=== PATIENT | male | born 1950 | race Caucasian/White ===

== ENCOUNTER 2017-11-04 13:54 | Emergency (ER) | payer MEDICARE, MEDICAID, SELFPAY ==
[2017-11-04 14:05] VITALS: BP 107/86; PULSE 112; RESP 20; TEMP 38.9; O2SAT 99; BMI 22.5
--- NOTE | 2017-11-04 14:30 | HMH.EDUTC ---
[facility] [place] Clinical Impression: Erythrodermic psoriasis, Fever Disposition: Xfer Short-Term Hosp Condition on Discharge: Good Additional Instructions: This is a rare but very dangerous form of psoriasis. Its important to know the symptoms. If you think you have erythrodermic psoriasis, see your doctor right away. Symptoms Fiery red skin from head to toe is the main symptom. Your skin is also covered in scales and peels off in large pieces. It can be very painful and itchy. You might see tiny blisters called pustules that are filled with pus. Symptoms can develop over time, but they can come on suddenly too. You also may have: Chills or fever Joint pain Rapid heartbeat Swollen ankles Why Its Dangerous Your skin is important to your overall health. It helps control your body temperature, keeps germs and toxins out, and holds moisture in. Erythrodermic psoriasis throws all this off, and the results can be life threatening. They include a dangerously low body temperature (hypothermia), the loss of much-needed proteins and fluids, and severe illnesses like sepsis or pneumonia. If you lose too much fluid, your heart wont have enough blood to pump. That can lead to shock, kidney failure, or heart failure. Causes Psoriasis is an autoimmune disease. Instead of fighting infection, your bodys natural defense system attacks healthy tissue. Youre more likely to get erythrodermic psoriasis if you already have plaque psoriasis, especially if its unstable. That means the raised, scaly patches dont have well-defined edges. But it also affects people whove never had the disease. It can appear if you suddenly stop taking your oral psoriasis medication. Other triggers include: Alcoholism Drug reaction HIV Infection Oral steroid medicine Severe sunburn Stress Treatment If you have symptoms of erythrodermic psoriasis, dont wait to get help. Go to the hospital immediately. Doctors will try to stop the flare-up as quickly as possible and protect you from complications. Treatment depends on how bad your symptoms are and whether you have other health problems. You may be prescribed a combination of one or more drugs: Cyclosporine (Sandimmune), infliximab (Remicade), or infliximab-abda (Renflexis) and Infliximab-dyyb (Inflectra), biosimilars to Remicade, may be the first line of defense. They work by stopping the attack of qyh-uh-sfkhvoy immune cells. Your doctor may also prescribe acitretin (Soriatane) or methotrexate to control cell growth. You may also take an immune-suppressing drug, such as adalimumab (Humira), adalimumab-atto (Amjevita), a biosimilar to Humira, etanercept (Enbrel), etanercept-szzs (Erelzi), ixekizumab (Talz), secukinumab (Cosentyx), or ustekinumab (Stelara). These medicines are powerful and can have many side effects. Talk to your doctor to find out if theyre right for you. Make sure hes aware of any other medical conditions you have or any other medications you take. To soothe your skin from the outside, you may use a steroid cream or ointment moisturizers, wet wraps, or oatmeal baths. You may need antibiotics to help prevent infection and medication for pain, itching, or anxiety. Referrals: Bari Kapoor MD [Primary Care Provider] - (after discharge from ) Time of Disposition: 17:45 Medical Decision Making Vital Signs: 11/04/17 14:05 11/04/17 16:39 Temperature 102.1 F H 98.2 F Temperature Source Oral Oral Pulse Rate [Right] 112 H Respiratory Rate 20 Blood Pressure [Right Arm] 107/86 Blood Pressure Mean [Right Arm] 93 Blood Pressure Source [Right Arm] Automatic Cuff Blood Pressure Position [Right Arm] Sitting 02 Sat by Pulse Oximetry 99 Oxygen Delivery Method Room Air - Lab Data Lab results reviewed: Yes: I reviewed the patient's lab results. Lab Results 11/04/17 14:36: Influenza Type A Ag Negative, Influenza Type B Ag Negative 11/04/17 15:31: Urine Color Yellow, Urine Appearance Clear, U
--- NOTE | 2017-11-04 14:36 | ED_ITS ---
[facility] – [place] Disposition Clinical Impression: Erythrodermic psoriasis, Fever Disposition: Xfer Short-Term Hosp Condition on Discharge: Good Additional Instructions: This is a rare but very dangerous form of psoriasis. It?s important to know the symptoms. If you think you have erythrodermic psoriasis, see your doctor right away. Symptoms Fiery red skin from head to toe is the main symptom. Your skin is also covered in scales and peels off in large pieces. It can be very painful and itchy. You might see tiny blisters called pustules that are filled with pus. Symptoms can develop over time, but they can come on suddenly too. You also may have: * Chills or fever * Joint pain * Rapid heartbeat * Swollen ankles Why It?s Dangerous Your skin is important to your overall health. It helps control your body temperature, keeps germs and toxins out, and holds moisture in. Erythrodermic psoriasis throws all this off, and the results can be life threatening. They include a dangerously low body temperature (hypothermia), the loss of much- needed proteins and fluids, and severe illnesses like sepsis or pneumonia. If you lose too much fluid, your heart won?t have enough blood to pump. That can lead to shock, kidney failure, or heart failure. Causes Psoriasis is an autoimmune disease. Instead of fighting infection, your body?s natural defense system attacks healthy tissue. You?re more likely to get erythrodermic psoriasis if you already have plaque psoriasis, especially if it? s unstable. That means the raised, scaly patches don?t have well-defined edges. But it also affects people who?ve never had the disease. It can appear if you suddenly stop taking your oral psoriasis medication. Other triggers include: * Alcoholism * Drug reaction * HIV * Infection * Oral steroid medicine * Severe sunburn * Stress Treatment If you have symptoms of erythrodermic psoriasis, don?t wait to get help. Go to the hospital immediately. Doctors will try to stop the flare-up as quickly as possible and protect you from complications. Treatment depends on how bad your symptoms are and whether you have other health problems. You may be prescribed a combination of one or more drugs: * Cyclosporine (Sandimmune), infliximab (Remicade), or infliximab-abda ( Renflexis) and Infliximab-dyyb (Inflectra), biosimilars to Remicade, may be the first line of defense. They work by stopping the attack of tnn-ah-etvmpef immune cells. * Your doctor may also prescribe acitretin (Soriatane) or methotrexate to control cell growth. * You may also take an immune-suppressing drug, such as adalimumab (Humira), adalimumab-atto (Amjevita), a biosimilar to Humira, etanercept (Enbrel), etanercept-szzs (Erelzi), ixekizumab (Talz), secukinumab (Cosentyx), or ustekinumab (Stelara). * These medicines are powerful and can have many side effects. Talk to your doctor to find out if they?re right for you. Make sure he?s aware of any other medical conditions you have or any other medications you take. To soothe your skin from the outside, you may use a steroid cream or ointment moisturizers, wet wraps, or oatmeal baths. You may need antibiotics to help prevent infection and medication for pain, itching, or anxiety. Referrals: Bari Kapoor MD [Primary Care Provider] - (after discharge from ) Time of Disposition: 17:45 Medical Decision Making Vital Signs: 11/04/17 14:05 11/04/17 16:39 Temperature 102.1 F H 98.2 F Temperature Source Oral Oral Pulse Rate [Right] 112 H Respiratory Rate 20 Blood Pressure [Right Arm] 107/86 Blood Pressure Me
[2017-11-04 14:51] LABS: UTC Influenza A Antigen Negative (Negative); UTC Influenza B Antigen Negative (Negative)
--- NOTE | 2017-11-04 15:32 | XR_ITS ---
XR chest 2V HISTORY: ITS.REASON: mild cough, fever 102, acute flare psoriasis ORDERING PHYSICIAN: Karuna Perez PATIENT AGE: 67 years COMPARISON: 05-09 FINDINGS: The cardiomediastinal silhouette and pulmonary vascularity are within normal limits. The lungs are clear without infiltrates, suspicious nodules, or pleural effusions. Hyperinflation with attenuation of the peripheral pulmonary vessels consistent with obstructive chronic bronchitis. No lobar consolidation or collapse. There is no fracture of the right fifth rib. No acute bony abnormalities. IMPRESSION: COPD, and no acute finding
[2017-11-04 15:51] LABS: Basophils # 0.1 K/mm3 (0-0.2); Basophils % 0.6 % (0.1-2.0); Eosinophils # 0.7 K/mm3 (0.0-0.4); Eosinophils % 7.5 % (0.1-12.0); Hematocrit 39.4 % (42.0-52.0); Hemoglobin 13.2 g/dL (14.1-18.0); Lymphocytes # 1.8 K/mm3 (0.7-4.5); Lymphocytes % 19.7 K/mm3 (10-50); Mean Corpuscular HGB Conc 33.4 g/dL (31.8-35.4); Mean Corpuscular Hemoglobin 29.9 pg (27.0-31.2); Mean Corpuscular Volume 89.5 fl (80-94); Mean Platelet Volume 8.7 fl (7.4-10.4); Monocytes # 0.6 K/mm3 (0.1-1.0); Monocytes % 6.4 % (1.7-9.3); Neutrophils # 5.9 K/mm3 (1.8-7.8); Neutrophils % 65.7 % (37.0-80.0); Platelet Count 229 K/mm3 (142-424)
[2017-11-04 15:58] LABS: Apearance,Urine Clear (Clear); Color,Urine Yellow (Yellow); PH,Urine 7.5 (5.0-8.5); Specific Gravity, Urine 1.015 (1.005-1.030)
[2017-11-04 15:59] LABS: Bilirubin,Urine Negative (Negative); Blood, Urine Trace (Negative); Ketones,Urine Negative (Negative); Protein,Urine Negative (Negative); UTC Leukocyte Esterase,Urine Negative (Negative); UTC Nitrate,Urine Negative (Negative); Urobilinogen,Urine 0.2 EU/dl (0.2)
[2017-11-04 16:00] LABS: UTC Strep Screen (Rapid) Negative (Negative)
[2017-11-04 16:00] LABS: Alanine Aminotransferase 14 U/L (12-78); Albumin/Globulin Ratio 0.8 (1.1-1.8); Alkaline Phosphatase 97 U/L (46-116); Anion Gap 10.2 mEq/L (5-15); Aspartate Amino Transferase 14 U/L (15-37); Bilirubin,Total 0.5 mg/dL (0.2-1.0); Blood Urea Nitrogen 18 mg/dL (7-18); Calcium 8.1 mg/dL (8.5-10.1); Carbon Dioxide 27 mmol/L (21.0-32.0); Chloride 97 mmol/L (98-107); Creatinine Clearance Estimated 87 mL/min (0-300); Creatinine,Serum 0.96 mg/dL (0.70-1.30); Estimated Glomerular Filt Rate 79 ml/min (>60); GFR (African American) 95 ML/MIN (>60); Globulin 3.9 gm/dl (1.3-3.2); Glucose 297 mg/dL (74-106); Potassium 4.2 mmoL/L (3.5-5.1); Sodium 130 mmol/L (136-145); Total Protein,Serum 6.9 gm/dL (6.4-8.2)
[2017-11-04 16:39] VITALS: TEMP 36.8
== END 2017-11-04 18:18 | disposition short-term general hospital (02) ==
PROVIDERS: Emergency Provider Nurse Practitioner Family; Family Provider Family Medicine; PCP Family Medicine
DX: L40.8 Other psoriasis (principal); I10 Essential (primary) hypertension; E11.9 Type 2 diabetes mellitus without complications; E78.5 Hyperlipidemia, unspecified; F17.210 Nicotine dependence, cigarettes, uncomplicated
CPT/HCPCS: 36415; 71046; 80053; 81003; 85025; 87804; 87880; 99203; 99282

== ENCOUNTER → 2018-09-19 09:21 | Outpatient (CLI) | payer MEDICARE, SELFPAY ==
--- NOTE | 2018-09-19 09:27 | XR_ITS ---
XR knee LT 3V HISTORY: Pain with popping and cracking ITS.REASON: PAIN IN LEFT KNEE ORDERING PHYSICIAN: Laurence Garvin PATIENT AGE: 68 years COMPARISON: None FINDINGS: There is very slight decrease in the joint space medially and at the patellofemoral joint with minimal osteophytes at the patellofemoral joint and along the proximal tibia medially consistent with mild osteoarthritis. No fracture or dislocation. No lytic or blastic change. Vascular calcification noted IMPRESSION: Mild osteoarthritis
== END ==
PROVIDERS: PCP Nurse Practitioner; Visit Provider Nurse Practitioner
DX: M25.562 Pain in left knee (principal)
CPT/HCPCS: 73562

== ENCOUNTER → 2018-11-08 10:27 | Outpatient (CLI) | payer MEDICARE, MEDICAID, SELFPAY ==
--- NOTE | 2018-11-08 10:29 | XR_ITS ---
XR knee LT 4V HISTORY: ITS.REASON: Lt knee pain ORDERING PHYSICIAN: Laurence Garvin PATIENT AGE: 68 years FINDINGS: No fracture or dislocation. No lytic or blastic change. Normal mineralization. There is slight decrease in the joint space medially. Otherwise negative. IMPRESSION: Minimal osteoarthritic change medial compartment not significant change from 09/19/2019
--- NOTE | 2018-11-08 10:38 | CA_ITS ---
PROCEDURE: 2-D M-mode and color Doppler study INDICATIONS FOR THE TEST: Chest pain COPD Heart Murmur Tobacco Smoking+ Palpitations Fatigue Syncope Edema Hypertension+Diabetes Mellitus+ Rheumatic Fever SOB LACEY Obesity Hyperlipidemia Family History HD Additional History TDE LUNG INTERFERENCE PATIENT INFORMATION HEIGHT: 76 WEIGHT:200 GENDER: Male B/P:132/78 2-D/M-MODE INTERPRETATION: 2-D MEASUREMENTS OBSERVED VALUES IN CMS Right Ventricular Dimension (RVDd) 2.9 Interventricular Septum (Thickness)(IVsd) 1.5 Left Ventricular Internal Dimensions(LVIDd) 5.0 Left Ventricular Posterior Wall (Thickness)(LVPWd) 1.1 Aortic Root 3.4 Aortic Cusp Separation 1.9 Left Atrial Dimensions (LAD) 3.6 2D 1. Left atrium is mildly enlarged, left ventricle is normal size, mild concentric left ventricular hypertrophy, visually estimated ejection fraction 55% with no regional wall motion abnormality. 2. The right atrium and right ventricle are moderately enlarged, contractility of the right ventricle is mildly reduced. 3. The aortic valve is minimally thickened and fibrosed. 4. The mitral and tricuspid valve leaflets are minimally thickened. 5. The pulmonic valve is poorly visualized. 6. No significant pericardial effusion noted. DOPPLER INTERROGATION: Doppler interrogation of the aortic, mitral and tricuspid valvular presence of mild mitral and tricuspid regurgitation, tricuspid regurgitation jet velocity is inadequate for calculation of the right ventricular systolic pressure, grade 1 diastolic dysfunction seen with tissue Doppler evidence of raised left atrial pressure. CONCLUSION: 1. Mildly enlarged left atrium, normal left ventricular size, mild concentric left ventricular hypertrophy, visually estimated ejection fraction 55% with no regional wall motion abnormality, grade 1 diastolic dysfunction seen with tissue Doppler evidence of raised left atrial pressure. 2. Moderately enlarged right ventricle with mild reduced contractility. 3. Mild mitral and tricuspid regurgitation. 4. No significant pericardial effusion noted.
--- NOTE | 2018-11-08 11:21 | CT_ITS ---
CT lung screening EXAM: CT LUNG LOW DOSE WO CONTRAST HISTORY: 45 pack-year smoking history asymptomatic for lung cancer ITS.REASON: H/O NICOTINE DEPENDENCE ORDERING PHYSICIAN: Laurence Garvin PATIENT AGE: 68 years COMPARISON: 07/10/2015 TECHNIQUE: The exam was performed on a GE Light Speed [address] scanner using 2.90 mGy CTDI. A low dose helical CT CHEST was performed on a multi-detector scanner. All CT scans at the facility use one or more dose reduction, viz: automated exposure control, ma/kV adjustment per patient size (including targeted exams where dose is matched to indication, i.e. head), or iterative reconstruction technique. The LDCT was performed in a facility that meets the criteria for the screening program. Data regarding this exam was submitted to ACR which is an approved registry. The order for this exam indicates that it came as a result of a lung cancer screening counseling shard decision-making visit that included all the elements required of such a visit including smoking cessation. The radiologist interpreting this exam meets the CMS criteria for the LDCT lung cancer screening program. The exam is reported using the Lung-RADS classification scale and reported to the ACR registry. NOTE: This study was performed for the specific purposes of lung cancer screening and is not an alternative to diagnostic chest CT. RADIATION DOSE: CTDI vol(CT dose Index-volume) = 2.90mG DLP (Dose Length Product) = 115.29 mGcm FINDINGS: There is centrilobular emphysema with hyperinflation and attenuation of the peripheral pulmonary vessels consistent with obstructive chronic bronchitis. There are scattered subpleural nodular opacities and scattered areas of scarring. There is a 4 mm noncalcified nodule in the right lung base posterior laterally unchanged. There is a groundglass opacity in the right lung base posteriorly. This measures approximately 10 x 8 mm. This appears slightly more prominent than when compared to the previous study however part of that could be due to the slice orientation. Subpleural 5 mm nodule in the left lung base anteriorly unchanged. An additional 4 mm nodular opacity is present in the left lower lobe laterally unchanged. 6 mm stable nodules present in the left lower lobe posterior laterally. No new nodules are evident. Coronary artery calcifications are present. IMPRESSION: 1. Lung RADS Category: 3, probably benign. Groundglass opacity right lower lobe is very slightly more prominent. Recommend 6 month follow-up. Other smaller pulmonary nodules are noted and are unchanged. 2. Other findings: COPD, centrilobular emphysema, coronary artery disease RECOMMENDATIONS: 6 month LDCT follow-up
--- NOTE | 2018-11-08 12:20 | NM_ITS ---
History and Indications: Hypertension, diabetes, hyperlipidemia, tobacco use, family history, shortness of breath and fatigue Procedure: Patient received a 0.4 mg of intravenous Lexiscan, resting heart rate was 80 bpm, resting blood pressure 114/67, with Lexiscan maximum heart rate achieved was 97 bpm which is less than 85% of the maximum predicted heart rate and a blood pressure was 110/57. With Lexiscan patient complained of shortness of breath. Electrocardiogram: Resting electrocardiogram showed sinus rhythm, with Lexiscan there is occasional premature ventricular complex seen less than 1.[address] segment depression noted from the baseline EKG. The EKG portion of the Lexiscan Myoview is nondiagnostic. Cardiac stress and resting SPECT images: Cardiac stress and rest SPECT images were obtained using technetium 99 Myoview 30.7 mCi at stress and 10.4 mCi at rest. Gated SPECT further analysis of segmental wall motion and calculation of the ejection fraction also done. Cardiac stress and rest SPECT images show a mild fixed defect in the inferior wall with normal contractility in the gated SPECT is likely secondary to soft tissue attenuation, no reversible ischemia seen, computer derived ejection fraction is 65% with no regional wall motion abnormality, right ventricle is normal size and contractility. Conclusion: 1. The EKG portion of the Lexiscan Myoview is nondiagnostic. 2. No scintigraphic evidence of reversible ischemia seen, computer derived ejection fraction is 65% with no regional wall motion abnormality, right ventricle is normal size and contractility. 3. Normal Lexiscan Myoview study.
[2018-11-08 16:15] VITALS: PULSE 92; PULSE 96
== END ==
PROVIDERS: PCP Nurse Practitioner; Visit Provider Nurse Practitioner
DX: R06.02 Shortness of breath (principal); Z12.2 Encounter for screening for malignant neoplasm of respiratory organs; Z87.891 Personal history of nicotine dependence; M17.12 Unilateral primary osteoarthritis, left knee
CPT/HCPCS: 73564; 78452; 93017; 93306; 94060; 94640; 94726; 94729; A9502; J2785

== ENCOUNTER → 2019-02-15 08:11 | Outpatient (CLI) | payer MEDICARE, MEDICAID, SELFPAY ==
--- NOTE | 2019-02-15 08:15 | XR_ITS ---
XR knee LT 4V HISTORY: Pain ITS.REASON: ap, lateral, dinesh gutierrez ORDERING PHYSICIAN: Griselda Jain MD PATIENT AGE: 69 years COMPARISON: 11/08/2018 FINDINGS: Minimal osteoarthritic changes are present at the medial compartment and patellofemoral joint not significant changed. No fracture or dislocation lytic or blastic changes. Vascular calcifications are present. IMPRESSION: Minimal osteoarthritis of the medial compartment and patellofemoral joint
--- NOTE | 2019-02-15 08:15 | XR_ITS ---
XR knee RT 4V HISTORY: Pain ITS.REASON: ap, lateral, dinesh gutierrez ORDERING PHYSICIAN: Griselda Jain MD PATIENT AGE: 69 years COMPARISON: None FINDINGS: No fracture or dislocation. No lytic or blastic change. Normal mineralization. Minimal osteoarthritic changes are present at the medial aspect of the patellofemoral joint was some minimal hypertrophic change and slight decrease in the joint space. IMPRESSION: Minimal osteoarthritis of the patellofemoral joint
== END ==
PROVIDERS: PCP Family Medicine; Visit Provider Orthopaedic Surgery
DX: M17.12 Unilateral primary osteoarthritis, left knee (principal); M17.11 Unilateral primary osteoarthritis, right knee
CPT/HCPCS: 73564

== ENCOUNTER → 2020-02-05 15:10 | Outpatient (CLI) | payer MEDICARE, MEDICAID, SELFPAY ==
--- NOTE | 2020-02-05 15:15 | XR_ITS ---
PROCEDURE: XR FOOT RT MIN 3V CLINICAL INDICATION: RT ANKLE PAIN Right foot and ankle pain COMPARISON: XR ANKLE RT MIN 3V from 02/05/2020 FINDINGS: No fracture or dislocation. No lytic or blastic change. There is normal mineralization. There are mild degenerative changes at the talonavicular joint with mild inferior translation of the navicular with pes planus. Small calcaneal spur is noted. Other findings:There is a prominent os trigonum IMPRESSION: Mild osteoarthritic change of the talonavicular joint with pes planus Dictated by: Holden Clayton MD 02/05/2020 15:43 Electronically signed by Holden Clayton MD in [place] 02/05/2020 15:43
--- NOTE | 2020-02-05 15:15 | XR_ITS ---
PROCEDURE: XR ANKLE RT MIN 3V CLINICAL INDICATION: RT ANKLE PAIN COMPARISON: No exams were available for comparison FINDINGS: Normal alignment. No fracture or dislocation. The ankle mortise is preserved. There is some minimal cortical regularity involving the talar dome medially nonspecific. Prominent os trigonum is present. IMPRESSION: Minimal nonspecific cortical irregularity of the talar dome medially otherwise negative Dictated by: Holden Clayton MD 02/05/2020 15:45 Electronically signed by Holden Clayton MD in [place] 02/05/2020 15:45
== END ==
PROVIDERS: PCP Nurse Practitioner; Visit Provider Nurse Practitioner
DX: M25.571 Pain in right ankle and joints of right foot (principal)
CPT/HCPCS: 73610; 73630

== ENCOUNTER → 2020-03-19 11:30 | Outpatient (CLI) | payer MEDICARE, MEDICAID, SELFPAY ==
--- NOTE | 2020-03-19 11:38 | US_ITS ---
PROCEDURE: US TESTICULAR CLINICAL INDICATION: TESTICULAR SWELLING COMPARISON: No exams were available for comparison FINDINGS: The right testicle is 5 x 2.5 x 3.3 cm and has an unremarkable appearance with blood flow noted. Left testicle is 4.4 x 2.5 x 3.2 cm and has an unremarkable appearance. Blood flow is present. No mass evident. There is a medium-sized left hydrocele with some debris and synechia within the hydrocele. IMPRESSION: 1. Left hydrocele with synechia 2. No testicular mass. There is bilateral testicular blood flow Dictated by: Holden Clayton MD 03/19/2020 12:37 Electronically signed by Holden Clayton MD in [place] 03/19/2020 12:37
--- NOTE | 2020-03-19 11:38 | XR_ITS ---
PROCEDURE: XR FOOT WT BEARING RT 3V CLINICAL INDICATION: flat feet, ankle pain COMPARISON: XR FOOT RT MIN 3V from 02/05/2020 XR ANKLE WT BEARING LT MIN 3V from 03/19/2020 XR ANKLE WT BEARING RT MIN 3V from 03/19/2020 FINDINGS: No fracture or dislocation. No lytic or blastic change. There is normal mineralization. The joint spaces are well-preserved. No significant degenerative/arthritic changes. No erosive changes evident.. The ankle mortise is preserved. The talar dome show some minimal subchondral lucency along the medial aspect of the talar dome Other findings:There is pes planus. There is a small calcaneal spur. There is an os trigonum as well as an additional calcific density just posterior to the os trigonum. IMPRESSION: Pes planus with calcaneal spur and prominent os trigonum Minimal subchondral lucency along the medial aspect of the talar dome which may be related to osteochondrosis. Dictated by: Holden Clayton MD 03/19/2020 14:54 Electronically signed by Holden Clayton MD in [place] 03/19/2020 14:54
--- NOTE | 2020-03-19 11:38 | XR_ITS ---
PROCEDURE: XR ANKLE WT BEARING LT MIN 3V CLINICAL INDICATION: flat feet, ankle pain COMPARISON: XR ANKLE WT BEARING RT MIN 3V from 03/19/2020 FINDINGS: No fracture, dislocation, lytic change, or blastic change evident. No significant degenerative change IMPRESSION: No acute findings. Dictated by: Holden Clayton MD 03/19/2020 14:48 Electronically signed by Holden Clayton MD in [place] 03/19/2020 14:48
--- NOTE | 2020-03-19 11:38 | XR_ITS ---
PROCEDURE: XR FOOT WT BEARING LT 3V CLINICAL INDICATION: flat feet, ankle pain COMPARISON: XR FOOT RT MIN 3V from 02/05/2020 FINDINGS: No fracture or dislocation. No lytic or blastic change. There is normal mineralization. The joint spaces are well-preserved. No significant degenerative/arthritic changes. No erosive changes evident. Other findings:There is mild pes planus. There is a small calcaneal spur IMPRESSION: Pes planus with small calcaneal spur.. Dictated by: Holden Clayton MD 03/19/2020 14:41 Electronically signed by Holden Clayton MD in [place] 03/19/2020 14:41
== END ==
PROVIDERS: PCP Family Medicine; Visit Provider Family Medicine
DX: M21.41 Flat foot [pes planus] (acquired), right foot (principal); M21.42 Flat foot [pes planus] (acquired), left foot; N50.89 Other specified disorders of the male genital organs; N50.812 Left testicular pain
CPT/HCPCS: 73610; 73630; 76870

== ENCOUNTER 2020-06-02 08:54 | Outpatient (RCR) | payer MEDICARE, MEDICAID, SELFPAY ==
--- NOTE | 2020-06-02 09:25 | HMH.PTOPEV ---
PT Outpatient Evaluation Rehab PT Outpatient Evaluation Start: 06/02/20 09:18 Freq: Status: Active Protocol: Document 06/02/20 09:18 OSEAS (Rec: 06/02/20 09:25 OSEAS [id number]) Electronically Signed By Rancho Suggs, PT 06/02/20 09:18 Outpatient Therapy Subjective History Subjective History Pt reports h/o chronic R ankle pain for 'my whole life pretty much', but 'it's better a little worse over the last 2 months'. Pt reports global R ankle pain, with intermittent 'sharp' pain, and reports h/o 'arthitis, and flat feet'. PMH:DM-W/NEUROPATHY BLE Chief Complaint Pain,Stiff,Paresthesia Symptom Type Ache,Sharp,Dull Symptoms Relieved By Nothing Symptoms Aggravated By Standing,Walking Prior Functional Limitations Housework,Standing,Walking Current Functional Limitations Housework,Standing,Walking Symptom Description Constant but Variable Level of pain today (0-10) 7 Pain scale - at its best (0-10) 7 Pain scale - at its worst (0-10) 9 Ankle/Foot Eval Gait Observation General Gait Pattern Observation Antalgic Gait Palpation Tenderness right Ankle/Foot Palpation Findings Tenderness Ankle/Foot Palpation Overall Comment [id number] JT LINE 2/4 ROM Ankle/Foot Dorsiflexion W/Knee Flexed +2 Passive Range Motion (degrees) Ankle/Foot Dorsiflexion w/Knee Extended 2-30 Passive Range (degrees) Ankle/Foot Plantar Flexion Passive Range 0-10 of Motion (degrees) Ankle/Foot Eversion Passive Range of 0-20 Motion (degrees) Ankle/Foot ROM Limitations Soft Tissue Tightness,Pain MMT Ankle Dorsiflexion Strength Grade 4 Good Ankle Plantarflexion Strength Grade 4- Good- Foot Eversion Strength Grade 4- Good- Foot Inversion Strength Grade 4- Good- Special Tests Ankle Anterior Drawer Test Negative Right Ankle Eversion Test Negative Right Ankle Inversion (supination) Test Negative Right Outpatient Therapy Assessment Impairments Problems/Impairmments Palpation Tenderness,Impaired Range of Motion,Impaired Strength,Impaired Gait Pattern ,Impaired Walking,Impaired Standing,Impaired Household Care,Impaired Stair Climbing, Subjective C/O Pain,Impaired Self Care/Self Management Prognosis Rehab Potential Fair Clinical Impression Consistent with Diagnosis Yes Margret
== END 2020-06-02 09:45 | disposition home or self-care (01) ==
LOC: PT 08:54
PROVIDERS: PCP Family Medicine; Visit Provider Podiatrist
DX: M76.821 Posterior tibial tendinitis, right leg (principal); M76.822 Posterior tibial tendinitis, left leg
CPT/HCPCS: 97163

== ENCOUNTER → 2021-02-10 07:13 | Outpatient (CLI) | payer MEDICARE, MEDICAID, SELFPAY ==
--- NOTE | 2021-02-10 07:17 | CT_ITS ---
PROCEDURE: CT LUNG SCREENING CLINICAL INDICATION: H/O NICOTINE DEPENDENCE Current smoker 30 pack year smoking history COMPARISON: CT LUNGSCREEN CT lung screening from 11/08/2018 TECHNIQUE: The exam was performed on a GE Light Speed [address] scanner using 2.90 mGy CTDI. A low dose helical CT CHEST was performed on a multi-detector scanner. All CT scans at the facility use one or more dose reduction, viz: automated exposure control, ma/kV adjustment per patient size (including targeted exams where dose is matched to indication, i.e. head), or iterative reconstruction technique. The LDCT was performed in a facility that meets the criteria for the screening program. Data regarding this exam was submitted to ACR which is an approved registry. The order for this exam indicates that it came as a result of a lung cancer screening counseling shard decision-making visit that included all the elements required of such a visit including smoking cessation. The radiologist interpreting this exam meets the CMS criteria for the LDCT lung cancer screening program. The exam is reported using the Lung-RADS classification scale and reported to the ACR registry. NOTE: This study was performed for the specific purposes of lung cancer screening and is not an alternative to diagnostic chest CT. RADIATION DOSE: CTDI vol(CT dose Index-volume) = 2.90mG DLP (Dose Length Product) = 109.42 mGcm FINDINGS: COPD changes. 4 mm noncalcified nodule right lower lobe posteriorly unchanged. Stable ground-glass opacity right lower lobe posteriorly at 11 mm. Subpleural nodule right lower lobe posterior laterally at 4 mm unchanged. 3 mm right lower lobe nodule centrally unchanged. Calcified granuloma in the lingula. Subpleural 5 mm nodule left lower lobe, 5 mm nodule left lower lobe laterally, 4 mm subpleural nodule right lower lobe posteriorly, 6 mm nodule left lower lobe posterior laterally all unchanged. No new nodules apparent. OTHER FINDINGS: Coronary artery calcifications. Hiatal hernia. Small portal caval lymph nodes in the upper abdomen unchanged. IMPRESSION: Lung-RADS Category 2 Benign Appearance or Behavior Follow-up: Continue annual screening with LDCT in 12 months Dictated by: Holden Clayton MD 02/19/2021 10:38 Holden Clayton MD in [facility] 02/19/2021 10:38
--- NOTE | 2021-02-10 07:18 | US_ITS ---
PROCEDURE: US ABD. AORTA SCREENING CLINICAL INDICATION: AAA Screening for abdominal aortic aneurysm COMPARISON: CT ABDPELWO CT abdomen pelvis wo con from 10/04/2018 FINDINGS: There is incomplete imaging of the abdominal aorta due to overlying bowel gas. The upper and most distal aspect of the abdominal aorta have an unremarkable appearance. The mid abdominal aorta however is not well delineated. Consider CT for more thorough evaluation. IMPRESSION: Incomplete visualization of the aorta. Consider CT for further evaluation Dictated by: Holden Clayton MD 02/10/2021 18:06 Holden Clayton MD in [facility] 02/10/2021 18:06
== END ==
PROVIDERS: PCP Family Medicine; Visit Provider Family Medicine
DX: Z87.891 Personal history of nicotine dependence (principal); Z12.2 Encounter for screening for malignant neoplasm of respiratory organs; Z13.6 Encounter for screening for cardiovascular disorders
CPT/HCPCS: 71271; 76705

== ENCOUNTER 2022-07-11 10:30 | Emergency (ER) | payer MEDICARE, MEDICAID, SELFPAY ==
--- NOTE | 2022-07-11 10:48 | XR_ITS ---
PROCEDURE INFORMATION: Exam: XR Left Elbow Exam date and time: 07/11/2022 10:53 AM Age: 72 years old Clinical indication: Swelling; Elbow; Left; Additional info: Pain and swelling TECHNIQUE: Imaging protocol: Radiologic exam of the Left elbow. Views: 3 or more views. COMPARISON: No relevant prior studies available. FINDINGS: Bones/joints: Degenerative change. Anatomic alignment. Soft tissues: Marked soft tissue swelling about the olecranon, which could represent bursitis in the appropriate clinical setting. IMPRESSION: Marked soft tissue swelling about the olecranon, which could represent bursitis in the appropriate clinical setting.
--- NOTE | 2022-07-11 10:48 | EXP.UTC ---
Discharge Plan Disposition Patient Disposition: Home, Self-Care Condition: Good Prescriptions Prescriptions: Continued fenofibrate nanocrystallized 145 mg tablet 145 mg PO budesonide-formoterol 160-4.5 mcg/actuation HFA aerosol inhaler INHALATION diclofenac sodium [Voltaren] 1 % gel 4 g topical QID PRN (Reason: pain) Qty: 30 2RF Rx Instructions: apply to single knee, ankle, foot; gently massage into area; for foot includes sole/toes/top of foot fluticasone propionate 50 mcg/actuation spray,suspension INTRANASAL tramadol 50 mg tablet PO lisinopril 40 MG tablet 40 mg PO DAILY Label Comments: triamcinolone acetonide 80 GM cream 1 applic topical DAILY Label Comments: insulin aspart U-100 100 UNIT/ML solution 5 unit SQ BID insulin glargine 100 unit/mL solution 42 unit SQ DAILY Referrals Follow up/Referrals: Bari Kapoor MD [Primary Care Provider] - See instructions Davin Bell DO [Staff Physician] - 3 days (call for appointment this week) Clinical Impressions Clinical Impression: Effusion of olecranon bursa Discharge ED Provider: Chris ([facility] [place] HPI General Stated complaint: LT elbow inflammation w/pain Mode of Arrival: Ambulatory Source of Information: Patient Limitations: No Limitations Time Seen by Provider: 07/11/22 10:48 HEENT Symptoms (Recalled from RN notes): No Resp Symptoms (Recalled from RN notes): No Skin Symptoms (Recalled from RN notes): No GI/ Symptoms (Recalled from RN notes): No MS Symptoms (Recalled from RN notes): No Card Symptoms (Recalled from RN notes): No Other (Recalled from RN notes): Yes History of Present Illness Provider Complaint: 72 yr old male presents for swelling of left elbow for 2 days, no injury Location: upper extremity Related Data Home Medications Medication Instructions Recorded Confirmed lisinopril 40 mg tablet 40 mg PO DAILY Hypertension 11/04/17 10/14/20 insulin aspart U-100 100 unit/mL 5 unit SQ BID SUGAR 11/15/17 10/14/20 subcutaneous solution triamcinolone acetonide 0.1 % 1 applic topical DAILY ECZEMA 11/15/17 10/14/20 topical cream budesonide-formoterol HFA 160 inhalation 02/28/20 10/14/20 mcg-4.5 mcg/actuation aerosol inhaler fenofibrate nanocrystallized 145 145 mg PO 02/28/20 10/14/20 mg tablet insulin glargine 100 unit/mL 42 unit SQ DAILY SUGAR 02/28/20 10/14/20 subcutaneous solution tramadol 50 mg tablet mg PO 03/27/20 10/14/20 fluticasone propionate 50 intranasal 10/14/20 10/14/20 mcg/actuation nasal spray,suspension Previous Rx's Medication Instructions Recorded diclofenac sodium 1 % topical gel 4 g topical QID PRN pain #30 grams 02/28/20 (Voltaren) Allergies Allergy/AdvReac Type Severity Reaction Status Date / Time steroid Allergy Uncoded 07/11/22 10:52 PFSH PFS Social History , [place]) Smoking Status: Current every day smoker tobacco type: cigarettes packs per day: 1 alcohol intake: never substance use type: denies use current occupational status: other Travel in the last 8 weeks: None ROS Obtained: Yes All systems reviewed & no additional complaints except as documented Constitutional Constitutional: Reports system reviewed and no additional complaints, except as documented and Denies fatigue Eyes Eyes: Reports system reviewed and no additional complaints, except as documented ENT Ears, Nose, Mouth, and Throat: Reports system reviewed and no additional complaints, except as documented, Denies hearing loss and Denies throat swelling Cardiovascular Cardiovascular: Reports system reviewed and no additional complaints, except as documented and Denies chest pain with activity Respiratory Respiratory: Reports system reviewed and no additional complaints, except as documented and Denies non-productive cough Genitourinary Male Genitourinary:
[2022-07-11 10:50] VITALS: BP 131/76; PULSE 90; RESP 16; TEMP 36.8; O2SAT 97; BMI 25.5
[2022-07-11 11:14] VITALS: BP 131/76; PULSE 90; RESP 16; TEMP 36.8
== END 2022-07-11 11:17 | disposition home or self-care (01) ==
PROVIDERS: Emergency Provider Nurse Practitioner Family; PCP Family Medicine
DX: M25.422 Effusion, left elbow (principal)
CPT/HCPCS: 73080; 99212; G0463

== ENCOUNTER → 2022-08-05 11:28 | Outpatient (CLI) | payer MEDICARE, MEDICAID, SELFPAY ==
--- NOTE | 2022-08-05 11:33 | XR_ITS ---
FINAL REPORT TECHNIQUE: Chest PA & Lateral CLINICAL HISTORY: preop FINDINGS: 2 views of the chest were performed. The heart size is normal. There is a small sliding hiatal hernia. There are chronic changes at the lung bases. There are no pleural effusions. There is no pneumothorax. The bony thorax appears intact. IMPRESSION: No acute cardiopulmonary process. Reviewed, Interpreted and Dictated by Kolton Fregoso MD Transcribed by Harpreet Saenz Authenticated and [facility]
[2022-08-05 12:33] LABS: Basophils # 0.1 K/mm3 (0-0.2); Eosinophils # 0.1 K/mm3 (0.0-0.4); Eosinophils % 1.6 % (0.1-12.0); Hematocrit 48.9 % (42.0-52.0); Lymphocytes # 2.3 K/mm3 (0.7-4.5); Lymphocytes % 33.9 % (10-50); Mean Corpuscular HGB Conc 32.8 g/dL (31.8-35.4); Mean Corpuscular Hemoglobin 31.1 pg (27.0-31.2); Mean Corpuscular Volume 94.6 fl (80-94); Mean Platelet Volume 9.7 fl (7.4-10.4); Monocytes # 0.4 K/mm3 (0.1-1.0); Monocytes % 5.3 % (1.7-9.3); Neutrophils # 3.9 K/mm3 (1.8-7.8); Neutrophils % 57.1 % (37.0-80.0); Platelet Count 254 K/mm3 (142-424); Red Blood Count 5.16 M/mm3 (4.60-6.20); Red Cell Distribution Width 12.9 % (11.5-17.5); White Blood Count 6.9 K/mm3 (4.8-10.8)
[2022-08-05 13:11] LABS: Alanine Aminotransferase 22 U/L (12-78); Albumin Level 4.8 g/dl (3.5-5.0); Albumin/Globulin Ratio 1.3 (1.1-1.8); Alkaline Phosphatase 117 U/L (38-126); Anion Gap 16.1 mEq/L (5-15); Aspartate Amino Transferase 27 U/L (17-59); Bilirubin,Total 0.6 mg/dl (0.2-1.3); Blood Urea Nitrogen 14 mg/dl (9-20); Calcium 9.4 mg/dl (8.4-10.2); Carbon Dioxide 28 mmol/L (22.0-30.0); Chloride 97 mmol/L (98-107); Estimated Glomerular Filt Rate 96 ml/min (>60); GFR (African American) 116 ML/MIN (>60); Globulin 3.6 g/dL (1.3-3.2); Glucose 124 mg/dl (74-100); Potassium 5.1 mmoL/L (3.5-5.1); Sodium 136 mmol/L (136-145); Total Protein,Serum 8.4 g/dl (6.3-8.2)
== END ==
LOC: LAB 11:31
PROVIDERS: PCP Family Medicine; Visit Provider Orthopaedic Surgery
DX: M70.22 Olecranon bursitis, left elbow (principal); L40.8 Other psoriasis; Z01.818 Encounter for other preprocedural examination
CPT/HCPCS: 36415; 71046; 80053; 85025

== ENCOUNTER 2022-08-09 07:00 | Day surgery (SDC) | payer MEDICARE, MEDICAID, SELFPAY ==
[2022-08-06 13:20] VITALS: BMI 24.8
[2022-08-09] VITALS (9 sets, daily range): BP systolic 125–163; BP diastolic 62–77; PULSE 71–83; RESP 14–18; TEMP 36.2–36.3; O2SAT 95–99
[2022-08-09 07:26] LABS: POC Glucose,Bedside 119 (70-110)
--- NOTE | 2022-08-09 07:54 | EXP.ANES.CKL ---
[facility] Medical History Asthma COPD (chronic obstructive pulmonary disease) Diabetes mellitus, type 2 Hyperlipidemia Hypertension Osteoarthritis Psoriasis Surgical History History of myringotomy Family History Other Family history of COPD (chronic obstructive pulmonary disease) Family history of arthritis Family history of asthma Family history of diabetes mellitus type II Family history of hyperlipidemia Family history of hypertension Lung cancer Social History Smoking Status: Current every day smoker tobacco type: cigarettes packs per day: 1 pack-years: 50 alcohol intake: never substance use type: denies use current occupational status: other Travel in the last 8 weeks: None marital status: special maynor needs: No agree to transfusion: No do you feel safe at home: Yes victim of physical abuse: No victim of emotional abuse: No victim of sexual abuse: No would you like helpful sources: No [facility] Anesthesia Checklist Patient Identification Patient Identification: Arm Band and Verbal (Name & ) Structural Data Admitted From: Home Planned Operative Procedure/s: Excision of Left elbow bursitis Consent for Planned Operative Procedure(s) Verified: Yes Verified Documents: Surgical Consent NPO Status Verified Time NPO: 21:00 Additional verifications Anesthesia Reactions: No Hx Blood Transfusions: No Blood Transfusion Reaction: No Airway Assessment C-Spine Mobility Assessed: Yes TMJ Mobility Assessed: Yes Dentition: Edentulous Neurological Assessment Level of Consciousness: Awake, Alert and Appropriate Anesthesia Plan Anesthesia Risk discussed: Yes ASA Class: II Anesthesia Type: General
--- NOTE | 2022-08-09 09:33 | EXP.OP.NOTE ---
Date of procedure: 08/09/22 Pre-op Diagnosis:: Left elbow olecranon bursitis, nonseptic Post-op Diagnosis:: Same Procedure performed:: Left elbow open olecranon bursectomy Surgeon:: Davin Bell DO Anesthesia: GETBari Estimated blood loss (mL): 0 Clinical Note:: 72-year-old male with history of large swelling left elbow. Had left elbow aspirated in the clinic with 30 cc serosanguineous fluid nonseptic. Our swelling returned after 2 days. Wish to undergo olecranon bursectomy. Operative findings:: See dictation Operative note:: Patient was identified preoperatively. Left elbow was marked yes and my initials. Transferred operative suite. Placed on operating bed. General anesthesia ministered. Airway secured. Marking pen was used to rohan plan incision over the olecranon bursa left elbow. Esmarch used to exsanguinate extremity pneumatic tourniquet inflated to 250 mmHg. Skin knife was used to incise the skin. Blunt dissection and scissor dissection was taken around to identify olecranon bursa. There is a large fluid-filled olecranon bursal sac. Care was taken to excise a bursal sac in its entirety. There is no evidence of purulence or infection. Once completely excised copious irrigation wound performed. Deep layers closed with Vicryl stitch. Skin closed with nylon stitch sterile dressing placed. Patient recommend esthesia taken recovery stable condition Tourniquet time (min): 29 Condition: stable Disposition: PACU Complications:: None apparent
--- NOTE | 2022-08-09 09:38 | P.PNANES_ITS ---
[facility] Anesthesia Record Part I Anesthesia Record I Intake, IV Amount: 600 Estimated blood loss (mL): 2 Urine output (mL): 0 Blood Pressure: 125/66 SaO2: 97 Pulse Rate: 77 Respiratory Rate: 15 Temperature: 97.1 F Patient is:: Awake and Oral/Nasal airway Stable to PACU at:: 09:37
[2022-08-09 09:45] LABS: POC Glucose,Bedside 118 (70-110)
--- NOTE | 2022-08-09 10:09 | SUR.PHASEI ---
1007- detailed repot given to kim edwards in post op at this time 1008- pt transported to post op by kim edwards, all vitals stable, dressings CDI
--- NOTE | 2022-08-09 10:51 | SUR.PHASEI ---
0830- blood sugar at this time taken via finger stick is 118. emilia vela aware
[2022-08-10 10:40] VITALS: BP 140/63; PULSE 71; TEMP 36.3
--- NOTE | 2022-08-10 10:40 | P.PNANES_ITS ---
[facility] Anesthesia Record Part II Anesthesia Record Part II Discharge Time: 10:07 Destination: Surgical Day Care (OP Surgery) PACU nurse assessment reviewed?: Yes Patient Condition:: Good Anesthesia Complications:: None Swallowing reflex intact?: Yes Cyanosis?: No Blood Pressure: 140/63 Pulse Rate: 71 Temperature: 97.3 F Mental Status: Alert & Oriented Pain level:: 0 Nausea and/or vomitting:: None Intake, IV Amount: 0
== END 2022-08-09 10:41 | disposition home or self-care (01) ==
PROVIDERS: PCP Family Medicine; Visit Provider Orthopaedic Surgery
DX: M70.22 Olecranon bursitis, left elbow (principal); E11.9 Type 2 diabetes mellitus without complications; Z79.4 Long term (current) use of insulin; F17.210 Nicotine dependence, cigarettes, uncomplicated
CPT/HCPCS: 24105; 82962; 96374

== ENCOUNTER 2025-01-07 14:19 | Outpatient (CLI) | payer MEDICARE, MEDICAID, SELFPAY ==
--- NOTE | 2025-01-07 14:25 | XR_ITS ---
FINAL REPORT CLINICAL HISTORY: RIB CONTUSION FINDINGS: LEFT RIBS WITH CHEST An AP view of the chest with 3 views of the left ribs were obtained. There is no acute displaced rib fracture. Heart and mediastinum within normal limits. Lungs are clear. There is no pneumothorax. IMPRESSION: No acute displaced rib fracture. No acute cardiopulmonary process. Reviewed, Interpreted and Dictated by Selma Crews MD Transcribed by Nel Bajwa Authenticated and [facility]
== END 2025-01-07 23:59 | disposition home or self-care (01) ==
LOC: RAD 14:21
PROVIDERS: PCP Nurse Practitioner; Visit Provider Nurse Practitioner
DX: R07.89 Other chest pain (principal); S20.219A Contusion of unspecified front wall of thorax, initial encounter
CPT/HCPCS: 71101

== ENCOUNTER 2025-01-29 10:57 | Outpatient (CLI) | payer MEDICARE, MEDICAID, SELFPAY ==
[2025-01-29 11:43] LABS: Albumin Level 4.7 g/dl (3.5-5.0); Chloride 102 mmol/L (98-107); Potassium 4.9 mmoL/L (3.5-5.1); Sodium 139 mmol/L (136-145)
[2025-01-29 11:46] LABS: Alanine Aminotransferase 26 U/L (12-78); Albumin/Globulin Ratio 1.5 (1.1-1.8); Alkaline Phosphatase 88 U/L (38-126); Anion Gap 13.9 mEq/L (5-15); Aspartate Amino Transferase 26 U/L (17-59); Bilirubin,Total 0.6 mg/dl (0.2-1.3); Blood Urea Nitrogen 16 mg/dl (9-20); Carbon Dioxide 28 mmol/L (22.0-30.0); Estimated Glomerular Filt Rate 73 ml/min (>60); GFR (African American) 89 ML/MIN (>60); Globulin 3.2 g/dL (1.3-3.2); Total Protein,Serum 7.9 g/dl (6.3-8.2)
[2025-01-29 11:47] LABS: Calcium 9.4 mg/dl (8.4-10.2); Glucose 147 mg/dl (74-100)
[2025-01-29 11:50] LABS: Basophils # 0.1 K/mm3 (0-0.2); Basophils % 1.1 % (0.1-2.0); Eosinophils # 0.1 K/mm3 (0.0-0.4); Eosinophils % 2.1 % (0.1-12.0); Hematocrit 45.7 % (42.0-52.0); Hemoglobin 14.9 g/dL (14.1-18.0); Lymphocytes # 1.8 K/mm3 (0.7-4.5); Lymphocytes % 29.5 % (10-50); Mean Corpuscular HGB Conc 32.6 g/dL (31.8-35.4); Mean Corpuscular Hemoglobin 30.2 pg (27.0-31.2); Mean Corpuscular Volume 92.5 fl (80-94); Mean Platelet Volume 11.5 fl (7.4-10.4); Monocytes # 0.7 K/mm3 (0.1-1.0); Monocytes % 10.6 % (1.7-9.3); Neutrophils # 3.5 K/mm3 (1.8-7.8); Neutrophils % 56.5 % (37.0-80.0); Platelet Count 244 K/mm3 (142-424); Red Blood Count 4.94 M/mm3 (4.60-6.20); Red Cell Distribution Width 13.2 % (11.5-17.5); White Blood Count 6.2 K/mm3 (4.8-10.8)
[2025-01-31 20:10] LABS: QuantiFERON-TB Gold Plus Negative (Negative)
== END 2025-01-29 23:59 | disposition home or self-care (01) ==
LOC: LAB 10:59
PROVIDERS: PCP Family Medicine; Visit Provider Dermatology
DX: L40.0 Psoriasis vulgaris (principal); Z79.899 Other long term (current) drug therapy
CPT/HCPCS: 36415; 80053; 85025; 86480

== ENCOUNTER 2025-02-05 07:33 | Day surgery (SDC) | payer MEDICARE, MEDICAID, SELFPAY ==
[2025-02-01 11:19] VITALS: BMI 24.3
[2025-02-05 08:00] VITALS: BP 124/77; PULSE 94; RESP 17; TEMP 36.1; O2SAT 95
--- NOTE | 2025-02-05 08:09 | EXP.ANES.CKL ---
[facility] Disclaimer: The information contained in this section may have been updated after the patient was seen, as this information can be updated by other users. Medical History Asthma COPD (chronic obstructive pulmonary disease) Diabetes mellitus, type 2 Hyperlipidemia Hypertension Osteoarthritis Psoriasis Surgical History History of myringotomy right x2 Family History Other Family history of COPD (chronic obstructive pulmonary disease) Family history of arthritis Family history of asthma Family history of diabetes mellitus type II Family history of hyperlipidemia Family history of hypertension Lung cancer Social History Smoking Status: Current every day smoker tobacco type: cigarettes packs per day: 1 alcohol intake: never substance use type: denies use current occupational status: other Travel in the last 8 weeks: None marital status: special maynor needs: No agree to transfusion: No do you feel safe at home: Yes victim of physical abuse: No victim of emotional abuse: No victim of sexual abuse: No would you like helpful sources: No Have you lived/traveled outside [place] in past 30 days?: No Contact w/someone who lives/traveled outside US past 30 days?: No Exposure to someone with infectious disease in past 14 days?: No Do you have a fever (greater than 100.4 F or 38 C)?: No Have you tested positive for COVID-19: No Exposed to someone with COVID-19 in past 14 days?: No Do you have a sore throat?: No Do you have a cough?: No Do you have any weakness?: No Do you have any diarrhea?: No Are you experiencing any unusual bleeding?: No Do you have any muscle aches/pain?: No Do you have any abdominal pain?: No Are you experiencing loss of taste or smell?: No [facility] Anesthesia Checklist Patient Identification Patient Identification: Arm Band Structural Data Admitted From: Home Planned Operative Procedure/s: Colonoscopy Consent for Planned Operative Procedure(s) Verified: Yes Verified Documents: Surgical Consent and History and Physical NPO Status Verified Time NPO: 00:00 Additional verifications Anesthesia Reactions: No Hx Blood Transfusions: No Blood Transfusion Reaction: No Airway Assessment Mallampati Score:: Class II C-Spine Mobility Assessed: Yes TMJ Mobility Assessed: Yes Dentition: Edentulous Neurological Assessment Level of Consciousness: Awake, Alert and Appropriate Anesthesia Plan Anesthesia Risk discussed: Yes Anesthesia Plan: Verified ASA Class: III Anesthesia Type: MAC
[2025-02-05 08:10] LABS: POC Glucose,Bedside 128 (70-110)
--- NOTE | 2025-02-05 08:10 | P.HP_ITS ---
HPI HPI HPI: This is a 74-year-old gentleman who presents for screening colonoscopy [facility] Disclaimer: The information contained in this section may have been updated after the patient was seen, as this information can be updated by other users. Medical History Asthma COPD (chronic obstructive pulmonary disease) Diabetes mellitus, type 2 Hyperlipidemia Hypertension Osteoarthritis Psoriasis Surgical History History of myringotomy right x2 Family History Other Family history of COPD (chronic obstructive pulmonary disease) Family history of arthritis Family history of asthma Family history of diabetes mellitus type II Family history of hyperlipidemia Family history of hypertension Lung cancer Social History Smoking Status: Current every day smoker tobacco type: cigarettes packs per day: 1 alcohol intake: never substance use type: denies use current occupational status: other Travel in the last 8 weeks: None marital status: special maynor needs: No agree to transfusion: No do you feel safe at home: Yes victim of physical abuse: No victim of emotional abuse: No victim of sexual abuse: No would you like helpful sources: No Have you lived/traveled outside US in past 30 days?: No Contact w/someone who lives/traveled outside US past 30 days?: No Exposure to someone with infectious disease in past 14 days?: No Do you have a fever (greater than 100.4 F or 38 C)?: No Have you tested positive for COVID-19: No Exposed to someone with COVID-19 in past 14 days?: No Do you have a sore throat?: No Do you have a cough?: No Do you have any weakness?: No Do you have any diarrhea?: No Are you experiencing any unusual bleeding?: No Do you have any muscle aches/pain?: No Do you have any abdominal pain?: No Are you experiencing loss of taste or smell?: No Other Medical History Have you received the Pneumonia Vaccine: Yes Review of Systems Review of Systems Review of systems:: pertinent systems reviewed and negative unless documented below Meds Home Medications and Allergies Home Medications ?Medication ?Instructions ?Recorded ?Confirmed ?Type lisinopril 40 mg tablet 40 mg PO DAILY Hypertension 11/04/17 02/05/25 History triamcinolone acetonide 0.1 % 1 applic topical DAILY ECZEMA 11/15/17 02/05/25 History topical cream budesonide-formoterol HFA 160 1 puff inhalation DAILY COPD 02/28/20 02/05/25 History mcg-4.5 mcg/actuation aerosol inhaler diclofenac sodium 1 % topical gel 4 g topical QID PRN pain #30 grams 02/28/20 02/05/25 Rx (Voltaren) fenofibrate nanocrystallized 145 145 mg PO DAILY Cholesterol 02/28/20 02/05/25 History mg tablet insulin glargine 100 unit/mL 42 unit SQ DAILY SUGAR 02/28/20 02/05/25 History subcutaneous solution gabapentin 100 mg capsule 300 mg PO TID Pain 08/09/22 02/05/25 History omeprazole 20 mg tablet,delayed 20 mg PO BID GERD 08/09/22 02/05/25 History release pioglitazone 15 mg tablet 15 mg PO DAILY 08/09/22 02/05/25 History dapagliflozin propanediol 10 mg 10 mg PO DAILY . 30 days #30 tabs 08/01/23 02/05/25 Rx tablet (Farxiga) New Prescriptions to Start Prescriptions: Allergies Allergy/AdvReac Type Severity Reaction Status Date / Time steroid Allergy Rash Uncoded 02/01/25 11:11 Exam Data for Last 24 hours Vital signs and Labs for Last 24 Hours: Temp Pulse Resp BP Pulse Ox O2 Del Method 97.0 F L 94 H 17 124/77 95 Room Air 02/05/25 08:00 02/05/25 08:00 02/05/25 08:00 02/05/25 08:00 02/05/25 08:00 02/05/25 08:00 Constitutional Constitutional: no acute distress *Routine HEENT Exam Head: Present normocephalic Eye: Present EOMI ENT: Present mucous membranes moist *Routine Neck Exam Neck: Present full ROM *Routine Respiratory Exam Respiratory: Absent respiratory distress *Routine Cardiovascular Exam Cardiovascular: Absent tachycardia *Routine Abdominal Exam Abdominal: Present soft *Routine Rectal Exam Rectal:: deferred *Routine Genitalia Exam Genitalia:: deferred *Routine Extremities Exam Extremities: Present full ROM *Routine Skin Exam Skin: Absent erythema *Routine Neurological Exam Neurological: Present alert Assessment and Plan *Assessment and plan (1) Encounter for screening colonoscopy: Status: Acute Category: Medical Code(s): Z12.11 - Encounter for screening for malignant neoplasm of colon Plan: Colonoscopy I have discussed the risks and benefits including, but not limited to: Bleeding Infection Damage to surrounding tissue Inherent risks of sedation The patient agrees to proceed.
--- NOTE | 2025-02-05 08:11 | HMH.SCOPE ---
Procedure: Date: 02/05/25 Patient Date of :: 1950 Procedure Performed:: Colonoscopy with polypectomy Indications:: Screening Note: The patient reports recent positive [employer] test Performing Provider:: Ahmet Cole MD Referring Provider:: . Sedation:: Monitored anesthesia care Procedure:: After informed consent was obtained the patient was taken to the endoscopy suite. Sedation ensued after the patient was transferred to the left lateral decubitus position. Pulse, blood pressure, and oxygen saturation were monitored throughout the procedure. Digital rectal exam revealed no significant abnormality. The colonoscope was placed in position. The entire colon was evaluated. The colonoscope was carefully removed and the patient was transferred to recovery in stable condition. Please see findings and specimens below for detail. Findings:: Bowel preparation moderate to poor Moderate tortuosity Moderate spasticity Scattered diverticulosis Polyps (see specimens) Specimens:: Sessile lobulated polyp at 65 cm (cold snare) Polyp at 20 cm (cold snare) Polyp at 7 cm (cold snare) Recommendations:: Timing of repeat colonoscopy is pending pathology will likely be around 6-12 months with extended/alternative bowel preparation (note positive [employer] test). Complications:: No immediate with the exception of moderate to poor bowel preparation Estimated blood obtained (mL): 1 Colonoscopy Component Colonoscopy Component Was a colonoscopy performed during today's procedure?: Yes Recommended follow up colonoscopy of at least 10 years?: No If no, follow up colonoscopy recommended in ___ years?: (See above) Reason for not recommending >/= 10 yr follow-up interval?: (See above)
[2025-02-05 08:14] VITALS: O2SAT 95
[2025-02-05 08:59] VITALS: BP 101/55; PULSE 80; RESP 16; TEMP 36.2; O2SAT 95
[2025-02-05 09:09] VITALS: BP 106/52; PULSE 74; RESP 16; O2SAT 98
[2025-02-05 09:19] VITALS: BP 121/55; PULSE 92; RESP 18; O2SAT 97
[2025-02-05 09:27] VITALS: BP 120/65; PULSE 98; RESP 16; O2SAT 97
== END 2025-02-05 09:29 | disposition home or self-care (01) ==
PROVIDERS: PCP Family Medicine; Visit Provider Surgery
PROC: 0DJD8ZZ Inspection of Lower Intestinal Tract, Via Natural or Artificial Opening Endoscopic (ICD-10-PCS; CPT 45385; principal; 2025-02-05 08:30)
DX: K57.30 Diverticulosis of large intestine without perforation or abscess without bleeding (principal); K63.5 Polyp of colon; Z12.11 Encounter for screening for malignant neoplasm of colon; E11.9 Type 2 diabetes mellitus without complications
CPT/HCPCS: 45385; 82962; 88305